=== PATIENT | female | born 1970 | race Caucasian/White ===

== ENCOUNTER 2020-06-24 12:24 | Outpatient (REF) | payer BC, SELFPAY ==
--- NOTE | ~2020-06-24 | MM_ITS ---
EXAMINATION: MM DIAGNOSTIC DIGITAL BREAST TOMOSYNTHESIS, BILATERAL US DIAGNOSTIC ULTRASOUND BREAST, BILATERAL CLINICAL INFORMATION: Fullness outer left breast noted by patient. Prior history fibrocystic changes. Also palpable area at clinical exam 7:00 right breast. Due for yearly. The lifetime risk of breast cancer based on the Tyrer-Cuzick Model is 10%. COMPARISON: Mammography: 01/15/2020, 12/21/2018, 01/04/2018, diagnostic left breast ultrasound 06/27/2019, bilateral diagnostic breast ultrasound 12/21/2018. TECHNIQUE: Digital breast tomosynthesis is performed in both the craniocaudal and mediolateral oblique views along with computer-aided detection (CAD). Synthesized 2D images are generated from the tomosynthesis. Ultrasound left breast is targeted to the lower outer quadrant and right breast targeted to the lower outer quadrant. Grayscale imaging and color Doppler are performed without and with harmonics. Patient is able to point to the areas of concern at time of imaging. FINDINGS: The breasts are extremely dense, which lowers the sensitivity of mammography (ACR BI-RADS breast composition Category d). There is oval smooth nodule mid outer left breast slightly increased in size since prior study 01/15/2020. Cyst noted in this area on prior imaging. The remainder of the bilateral breasts show no interval mass or architectural abnormality or developing density. There are no the axilla and skin contours are unremarkable. Abnormal calcifications. Ultrasound left breast demonstrates simple cyst 4:00 position 5 cm from nipple corresponding to the area of palpable concern and mammographic finding. This measures 1.4 x 0.7 cm. Prior measurement 1.0 x 0.5 cm. There is no solid mass or architectural abnormality. Ultrasound right breast demonstrates 2 small cysts lower outer quadrant 8:00 position 9:00 position approximately 7 cm from nipple, the larger measuring only 1.1 x 0.4 cm and the smaller 0.6 x 0.3 cm. There is no solid mass or architectural abnormality. Results are discussed with the patient at time of visit. MM/MM tomosynthesis diagnostic BI IMPRESSION: 1. No mammographic evidence of malignancy. 2. Small bilateral simple cysts corresponding to areas of recent palpable concern. ASSESSMENT: BI-RADS 2: Benign RECOMMENDATION: Routine annual mammography screening. This patient's information was entered into a reminder system with a target due date for their next mammogram.
== END 2020-06-24 12:25 | disposition home or self-care (01) ==
LOC: HO.MAMMO 12:24
PROVIDERS: Visit Provider Internal Medicine
DX: N63.13 Unspecified lump in the right breast, lower outer quadrant (principal); N63.23 Unspecified lump in the left breast, lower outer quadrant
CPT/HCPCS: 76642; 77062; 77066

== ENCOUNTER 2021-01-29 09:56 | Outpatient (REF) | payer BC, SELFPAY ==
--- NOTE | ~2021-01-29 | MM_ITS ---
EXAMINATION: MM SCREENING DIGITAL BREAST TOMOSYNTHESIS, BILATERAL CLINICAL INFORMATION: Screening. Asymptomatic. The lifetime risk of breast cancer based on the Tyrer-Cuzick Model is 16%. COMPARISON: Mammography: 06/24/2020, 01/15/2020, 12/21/2018, 04/05/2018; bilateral targeted ultrasound 06/24/2020. TECHNIQUE: Digital breast tomosynthesis is performed in both the craniocaudal and mediolateral oblique views along with computer-aided detection (CAD). Synthesized 2D images are generated from the tomosynthesis. FINDINGS: The breasts are extremely dense, which lowers the sensitivity of mammography (ACR BI-RADS breast composition Category d). There are no significant masses, abnormal calcifications, or other abnormalities. Parenchymal pattern is similar to prior studies. No developing density. Skin contours are smooth. MM/MM tomosynthesis screening BI IMPRESSION: No mammographic evidence of malignancy. ASSESSMENT: BI-RADS 1: Negative RECOMMENDATION: Routine annual mammography screening. This patient's information was entered into a reminder system with a target due date for their next mammogram.
== END 2021-01-29 09:57 | disposition home or self-care (01) ==
LOC: HO.MAMMO 09:56
PROVIDERS: Visit Provider Internal Medicine
DX: Z12.31 Encounter for screening mammogram for malignant neoplasm of breast (principal)
CPT/HCPCS: 77063; 77067

== ENCOUNTER 2022-02-03 09:54 | Outpatient (REF) | payer BC, SELFPAY ==
--- NOTE | ~2022-02-03 | MM_ITS ---
EXAMINATION: MM SCREENING DIGITAL BREAST TOMOSYNTHESIS, BILATERAL CLINICAL INFORMATION: Screening. Asymptomatic. The lifetime risk of breast cancer based on the Tyrer-Cuzick Model is 16%. COMPARISON: Mammography: 01/29/2021, 06/24/2020, 01/15/2020, 12/21/2018; bilateral breast ultrasound 06/24/2020. TECHNIQUE: Digital breast tomosynthesis is performed in both the craniocaudal and mediolateral oblique views along with computer-aided detection (CAD). Synthesized 2D images are generated from the tomosynthesis. FINDINGS: The breasts are extremely dense, which lowers the sensitivity of mammography (ACR BI-RADS breast composition Category d). There are no significant masses, abnormal calcifications, or other abnormalities. There is smooth oval asymmetry central outer left breast1.4 cm corresponding to a simple cyst on ultrasound. No architectural abnormality. The axilla and skin contours are unremarkable. MM/MM tomosynthesis screening BI IMPRESSION: No mammographic evidence of malignancy. ASSESSMENT: BI-RADS 2: Benign RECOMMENDATION: Routine annual mammography screening. This patient's information was entered into a reminder system with a target due date for their next mammogram.
== END 2022-02-03 09:55 | disposition home or self-care (01) ==
LOC: HO.MAMMO 09:54
PROVIDERS: PCP Nurse Practitioner Family; Visit Provider Internal Medicine
DX: Z12.31 Encounter for screening mammogram for malignant neoplasm of breast (principal)
CPT/HCPCS: 77063; 77067

== ENCOUNTER 2023-02-10 07:17 | Outpatient (REF) | payer BC, SELFPAY ==
--- NOTE | ~2023-02-10 | MM_ITS ---
EXAMINATION: MM SCREENING DIGITAL BREAST TOMOSYNTHESIS, BILATERAL CLINICAL INFORMATION: Screening. Asymptomatic. COMPARISON: Mammography: This study is compared with prior exams dating back to 2019. TECHNIQUE: Digital breast tomosynthesis is performed in both the craniocaudal and mediolateral oblique views along with computer-aided detection (CAD). Synthesized 2D images are generated from the tomosynthesis. FINDINGS: The breasts are heterogeneously dense, which may obscure small masses (ACR BI-RADS breast composition Category c). There are grouped calcifications in the upper outer quadrant of the left breast. Additional mammographic imaging with magnification is advised. There are no other significant findings in this breast. In the right breast, there are no significant masses, abnormal calcifications, or other abnormalities. MM/MM tomosynthesis screening BI IMPRESSION: Calcifications in the upper outer quadrant of the left breast warrant additional mammographic imaging with magnification. No mammographic signs of malignancy right breast. ASSESSMENT: BI-RADS BI-RADS 0 - Incomplete: Needs additional Imaging. RECOMMENDATION: Additional views of the left breast. Radiology department staff will contact the patient for additional imaging. 1 year F/U This examination should not preclude the clinical evaluation of a suspicious palpable abnormality. This patient's information was entered into a reminder system with a target due date for their next mammogram.
== END 2023-02-10 07:18 | disposition home or self-care (01) ==
LOC: HO.MAMMO 07:17
PROVIDERS: PCP Nurse Practitioner Family; Visit Provider Nurse Practitioner Family
DX: Z12.31 Encounter for screening mammogram for malignant neoplasm of breast (principal)
CPT/HCPCS: 77063; 77067

== ENCOUNTER → 2023-02-10 07:30 | Outpatient (BNV) | payer BC, SELFPAY | PROVIDERS: PCP Nurse Practitioner Family; Visit Provider Radiology Diagnostic Radiology | DX: Z12.31 Encounter for screening mammogram for malignant neoplasm of breast (principal) | CPT/HCPCS: 77063; 77067 ==

== ENCOUNTER 2023-03-04 07:57 | Outpatient (REF) | payer BC, SELFPAY ==
--- NOTE | ~2023-03-04 | MM_ITS ---
EXAMINATION: MM DIAGNOSTIC DIGITAL MAMMOGRAPHY, LEFT CLINICAL INFORMATION: Evaluate calcifications seen on screening exam COMPARISON: Mammography: 02/10/2023, 02/03/2022, 01/29/2021, 06/24/2020, 01/15/2020, 1020. Dating back to 2013. TECHNIQUE: Digital mammography is performed in the following views: 2-D spot magnification views left breast in the CC projection x2, and ML projection x2. FINDINGS: The breasts are extremely dense, which lowers the sensitivity of mammography (ACR BI-RADS breast composition Category d). There are 2 groups of calcifications identified in the left breast, tightly grouped in the middle one third of the left breast, just lateral to the nipple line, and the second in the posterior one third, much less tightly grouped, just medial to the nipple line. The anterior group of calcifications is tightly grouped, roundish in nature, and moderately pleomorphic with linear punctate forms, oval amorphous forms, a few linear forms, but no branching forms or suspicious distribution. The more posterior group has similar morphology, but is much looser in grouping, with less pleomorphism. Nevertheless, they are indeterminant in the patient prefers both sites be biopsied. Results were discussed with the patient directly by myself, and all questions were answered at the time. The patient would prefer both sites biopsied during the same procedure, a reasonable request which will be honored. MM/MM added views LT IMPRESSION: 2 sites of indeterminate grouped calcifications, which cannot definitively be classified as benign. Stereotactic biopsy recommended for both sites. ASSESSMENT: BI-RADS BI-RADS 4 - Suspicious finding RECOMMENDATION: Biopsy recommended This patient's information was entered into a reminder system with a target due date for their next mammogram.
== END 2023-03-04 07:58 | disposition home or self-care (01) ==
LOC: HO.MAMMO 07:57
PROVIDERS: PCP Nurse Practitioner Family; Visit Provider Nurse Practitioner Family
DX: R92.1 Mammographic calcification found on diagnostic imaging of breast (principal)
CPT/HCPCS: 77065

== ENCOUNTER → 2023-03-04 08:00 | Outpatient (BNV) | payer BC, SELFPAY | PROVIDERS: PCP Nurse Practitioner Family; Visit Provider Radiology Diagnostic Radiology | DX: R92.1 Mammographic calcification found on diagnostic imaging of breast (principal) | CPT/HCPCS: 77065 ==

== ENCOUNTER 2023-03-08 13:21 | Outpatient (REF) | payer BC, SELFPAY ==
--- NOTE | ~2023-03-08 | MM_ITS ---
EXAMINATION: STEREOTACTIC TOMOSYNTHESIS-GUIDED VACUUM-ASSISTED BREAST BIOPSY, LEFT, 2 SITES SPECIMEN RADIOGRAPH, LEFT, 2 SITES POST PROCEDURE DIGITAL MAMMOGRAM, LEFT CLINICAL INFORMATION: 2 sites of suspicious calcifications in the left breast, the more anterior (SITE A) is more tightly grouped and located far medial and superior within the mid one third of the left breast. This second site is more loosely clustered and less suspicious (SITE B) and is located upper outer left breast, posterior one third. COMPARISON: 03/04/2023, 02/10/2023, 02/03/2022, 01/29/2021. TECHNIQUE/PROCEDURE: Informed consent was obtained from the patient after discussion of the benefits, risks, and alternatives to biopsy today. Patient appeared to understand. Gave opportunity for questions. Patient signed consent form. BIOPSY TABLE: [employer] Prone Biopsy System. LESION: 2 sites of calcifications upper outer breast as detailed. (SITE A, marked by top hat clip, and SITE B, marked by a buckle clip). LOCAL ANESTHESIA: 5 mL 1% lidocaine; 9 mL 1% lidocaine with epinephrine for SITE A. 5 mL 1% lidocaine; 7 mL 1% lidocaine with epinephrine for SITE B. DERMATOTOMY: Single skin sarah dermatotomy performed at each site. NEEDLE: X-1 Eviva 9-gauge vacuum assisted core biopsy device. APPROACH: Both sites craniocaudal. TARGETING: Combination of digital breast tomosynthesis and stereotactic digital mammography used for targeting. CORES: 7 core biopsies obtained from each site. CLIP: Top hat-shaped clip site A. Buckle clip site B. SPECIMEN RADIOGRAPH: Specimen radiograph is taken in separate room using digital mammography. SITE A: at least one and more likely 2 index calcifications are in the excised cores. SITE B: No definitive calcifications obtained (biopsy site was slightly too far superior due to technical inability to accurately visualize SITE B calcifications) POST PROCEDURE UNILATERAL DIGITAL MAMMOGRAM: The post biopsy mammogram is performed in separate room using separate digital mammography equipment from the biopsy procedure. CC and 90 degree mediolateral views are obtained. The breasts are heterogeneously dense, which may obscure small masses (breast composition category: c). SITE A: Clip appears in accurate and expected location. SITE B: Clip appears higher than expected for second group of calcifications, likely indicating biopsy site was too far posterolateral. The patient tolerated the procedure well. No immediate complications. Home instructions reviewed with the patient. Final pathology results are pending. MM/MM stereotactic biopsy ea add IMPRESSION: 1. Digital tomosynthesis-guided 2 site core biopsy left breast with dual clip placement as detailed. 2. Specimen radiograph taken and post procedure mammogram. There is satisfactory positioning of the both biopsy clips. The second clip appears to far posterior lateral, likely indicating the biopsy site was too far posterior lateral to the index calcifications of SITE B. 3. Final pathology results pending. An addendum report will be issued.
--- NOTE | ~2023-03-08 | MM_ITS ---
EXAMINATION: STEREOTACTIC TOMOSYNTHESIS-GUIDED VACUUM-ASSISTED BREAST BIOPSY, LEFT, 2 SITES SPECIMEN RADIOGRAPH, LEFT, 2 SITES POST PROCEDURE DIGITAL MAMMOGRAM, LEFT CLINICAL INFORMATION: 2 sites of suspicious calcifications in the left breast, the more anterior (SITE A) is more tightly grouped and located far medial and superior within the mid one third of the left breast. This second site is more loosely clustered and less suspicious (SITE B) and is located upper outer left breast, posterior one third. COMPARISON: 03/04/2023, 02/10/2023, 02/03/2022, 01/29/2021. TECHNIQUE/PROCEDURE: Informed consent was obtained from the patient after discussion of the benefits, risks, and alternatives to biopsy today. Patient appeared to understand. Gave opportunity for questions. Patient signed consent form. BIOPSY TABLE: [employer] Prone Biopsy System. LESION: 2 sites of calcifications upper outer breast as detailed. (SITE A, marked by top hat clip, and SITE B, marked by a buckle clip). LOCAL ANESTHESIA: 5 mL 1% lidocaine; 9 mL 1% lidocaine with epinephrine for SITE A. 5 mL 1% lidocaine; 7 mL 1% lidocaine with epinephrine for SITE B. DERMATOTOMY: Single skin sarah dermatotomy performed at each site. NEEDLE: [employer] Eviva 9-gauge vacuum assisted core biopsy device. APPROACH: Both sites craniocaudal. TARGETING: Combination of digital breast tomosynthesis and stereotactic digital mammography used for targeting. CORES: 7 core biopsies obtained from each site. CLIP: Top hat-shaped clip site A. Buckle clip site B. SPECIMEN RADIOGRAPH: Specimen radiograph is taken in separate room using digital mammography. SITE A: at least one and more likely 2 index calcifications are in the excised cores. SITE B: No definitive calcifications obtained (biopsy site was slightly too far superior due to technical inability to accurately visualize SITE B calcifications) POST PROCEDURE UNILATERAL DIGITAL MAMMOGRAM: The post biopsy mammogram is performed in separate room using separate digital mammography equipment from the biopsy procedure. CC and 90 degree mediolateral views are obtained. The breasts are heterogeneously dense, which may obscure small masses (breast composition category: c). SITE A: Clip appears in accurate and expected location. SITE B: Clip appears higher than expected for second group of calcifications, likely indicating biopsy site was too far posterolateral. The patient tolerated the procedure well. No immediate complications. Home instructions reviewed with the patient. Final pathology results are pending. MM/MM stereotactic biopsy LT IMPRESSION: 1. Digital tomosynthesis-guided 2 site core biopsy left breast with dual clip placement as detailed. 2. Specimen radiograph taken and post procedure mammogram. There is satisfactory positioning of the both biopsy clips. The second clip appears to far posterior lateral, likely indicating the biopsy site was too far posterior lateral to the index calcifications of SITE B. 3. Final pathology results pending. An addendum report will be issued.
[2023-03-08] MEDS: Sodium Bicarbonate 8.4% 50 MEQ/50 ML VIAL SUBCUT (16:42)
[2023-03-08] MEDS: Lidocaine HCl 1 % 20 ML VIAL 8 ML SUBCUT (16:43)
[2023-03-08] MEDS: Lidocaine HCl 1%/Epi 1:100,000 10 ML VIAL 18 ML SUBCUT (16:45)
== END 2023-03-08 13:22 | disposition home or self-care (01) ==
LOC: HO.MAMMO 13:21
PROVIDERS: PCP Nurse Practitioner Family; Visit Provider Nurse Practitioner Family
DX: R92.0 Mammographic microcalcification found on diagnostic imaging of breast (principal)
CPT/HCPCS: 19081; 19082; 88305; A4648

== ENCOUNTER → 2023-03-08 13:30 | Outpatient (BNV) | payer BC, SELFPAY | PROVIDERS: PCP Nurse Practitioner Family; Visit Provider Radiology Diagnostic Radiology | DX: R92.0 Mammographic microcalcification found on diagnostic imaging of breast (principal) | CPT/HCPCS: 19081; 19082 ==

== ENCOUNTER 2023-04-02 10:26 | Outpatient (AMB) | payer BC, SELFPAY ==
--- NOTE | 2023-04-02 10:38 | MHC.OFFVIS ---
Intake Vital Signs 04/02/23 10:40 Weight 168 lb 13.985 oz BP 128/84 Blood Pressure Location Rt brachial Position Sitting Pulse 80 Intake Visit Reasons: Left breast stereo biopsy, bx date 03/08/23 Intake Note: Patient here to discuss Lt breast stereo bx on 03-08-23. Patient c/o: Irritation at bx site. Band Attacher Required: No Accompanied by: Rejean Allergies No Known Allergies [No Known Allergies*] Allergy (Verified 04/02/23 10:42) Medication List - Last Reconciled 04/02/23 by Quinn Chauhan MD ascorbate calcium (vitamin C) 500 mg PO DAILY calcium carbonate (Calcium) 600 mg PO DAILY cholecalciferol (vitamin D3) 50 mcg PO DAILY vitamin B complex 1 tab PO DAILY HPI HPI Comments History of Present Illness Details Patient presents with her . She is status post stereotactic biopsy x2 of left breast. Specimen a demonstrated lobular hyperplasia with atypia. Specimen B was benign. Patient had no prior breast issues or complaints. She did occasional self-breast exams. This was picked up on surveillance screening. Family history negative breast cancer. Chart was reviewed patient evaluated [facility] Medical History Leukopenia Mitral valve prolapse Right sided sciatica Degenerative disc disease, lumbar Cyst of left breast Masses of both breasts Surgical History [place] teeth extracted History of tonsillectomy Family History Father Diabetes mellitus HTN (hypertension) Mother Diabetes mellitus HTN (hypertension) Kidney failure Brother Diabetes mellitus HTN (hypertension) Son No problems noted. Maternal Grandmother Colon cancer Social History (Updated 04/02/23 @ 10:44 by NAVEED Patel) Alcohol intake: current Patient Tobacco Use Status: Never used Tobacco Physical Exam Vital Signs: Last Vital Signs Pulse 80 04/02/23 10:40 BP 128/84 04/02/23 10:40 Chest Other: Chest breath sounds bilaterally, HS 1 and 2. Bilateral breast exam demonstrates no obvious mass, discharge, skin changes , or periclavicular axillary or cervical adenopathy bilaterally. Biopsy sites clean dry and intact.. GI Other: Abdomen soft, moderately corpulent, benign Assessment & Plan Assessment & Plan (1) Breast calcification, left: Code(s): R92.1 - Mammographic calcification found on diagnostic imaging of breast Plan: Lengthy discussion was had with patient regarding biopsy results. Regarding the 8 atypical lobular hyperplasia, options include very close surveillance or lumpectomy of the area. Risks, benefits, alternatives of each reviewed the patient. Patient wishes to proceed with the lumpectomy. Specific risks, benefits, alternatives of procedure reviewed the patient included but not limited to bleeding, infection, numbness, pain, scarring, re-excision requirement and the patient wished to proceed. All questions were answered. Arrangements will be made for this. Localizer for biopsy site A order has been placed. Orders: Orders MM needle loc LT Today R92.1 - Mammographic calcification found on diagnostic imaging of breast Coding Level of Care Code New Pt Level 5 (84475) Diagnoses Breast calcification, left R92.1
[2023-04-02 10:40] VITALS: BP 128/84; PULSE 80
== END 2023-04-02 11:06 | disposition home or self-care (01) ==
PROVIDERS: PCP Nurse Practitioner Family; Visit Provider Surgery
DX: R92.1 Mammographic calcification found on diagnostic imaging of breast (principal)
CPT/HCPCS: 99204

== ENCOUNTER → 2023-04-02 10:26 | Outpatient (BNVA) | payer BC, SELFPAY | PROVIDERS: PCP Nurse Practitioner Family; Visit Provider Surgery ==

== ENCOUNTER 2023-04-08 07:47 | Outpatient (REF) | payer BC, SELFPAY ==
--- NOTE | ~2023-04-08 | MM_ITS ---
EXAMINATION: MM MAMMOGRAM GUIDED RFID LOCALIZATION BREAST, LEFT CLINICAL INFORMATION: Atypical lobular hyperplasia left breast. COMPARISON: 02/10/2023, 03/04/2023, 02/05/2023 stereotactic biopsy. TECHNIQUE NEEDLE LOC: Proper informed consent is obtained from the patient after discussion of the procedure, potential risks and complications, and alternatives including declining the procedure today. Patient was given an opportunity for questions. The patient appeared to understand. The patient consented to the procedure and signed the consent form. GUIDANCE: Digital mammography. APPROACH: Craniocaudal TARGET: Top hat-shaped clip with surrounding calcifications. ANESTHESIA: carbonated lidocaine 1%: 3 mL. LOCALIZATION SYSTEM: -[employer] LOCallizer Wire-Free Guidance System with 12g needle applicator. -Length: 7 cm. -RADIOFREQUENCY TAG: ID # [id number] DERMATOTOMY: Tiny skin-sarah dermatotomy performed. RF Tag ID confirmed with LOCalizer Guidance System prior to placement. The skin is prepped and local anesthesia administered. The needle is positioned and RFID tag deployed. Final images demonstrate the LOCalizer RF tag to reside touching the top hat-shaped biopsy clip. This is well-positioned. There are a few surrounding remaining calcifications. The patient tolerated the procedure well and had no immediate complications. Dressing placed and home instructions reviewed. MM/MM needle loc LT IMPRESSION: -Status post left breast RFID localization for ALH. -Final 2 images marked and labeled for reference in the OR.
[2023-04-08] MEDS: Sodium Bicarbonate 8.4% 50 MEQ/50 ML VIAL SUBCUT (09:40)
== END 2023-04-08 07:48 | disposition home or self-care (01) ==
LOC: HO.MAMMO 07:47
PROVIDERS: PCP Nurse Practitioner Family; Visit Provider Surgery
DX: R92.1 Mammographic calcification found on diagnostic imaging of breast (principal)
CPT/HCPCS: 19281; C1819

== ENCOUNTER 2023-04-16 12:54 | Outpatient (AMB) | payer BC, SELFPAY ==
[2023-04-16 12:58] VITALS: BP 120/72; PULSE 75; BMI 31.2
--- NOTE | 2023-04-16 12:58 | MHC.OFFVIS ---
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 She was apparently told to have mitral valve prolapse decades ago. However, no other cardiac issues like coronary disease, myocardial infarction or cardiomyopathy. She is fairly active with no limitations. No symptoms like angina or shortness of breath or palpitations or tiredness or in fact anything concern. She needs to go for breast surgery but because of the mitral valve prolapse history she has been referred to us for evaluation. [facility] Medical History Leukopenia Mitral valve prolapse Right sided sciatica Degenerative disc disease, lumbar Cyst of left breast Masses of both breasts Surgical History [place] teeth extracted History of tonsillectomy Family History Father Diabetes mellitus HTN (hypertension) Mother Diabetes mellitus HTN (hypertension) Kidney failure Brother Diabetes mellitus HTN (hypertension) Son No problems noted. Maternal Grandmother Colon cancer Social History Alcohol intake: current Patient Tobacco Use Status: Never used Tobacco Review of Systems Const Denies chills, Denies daytime sleepiness, Denies fatigue, Denies fever(s), Denies frequent falls, Denies night sweats, Denies snoring, Denies weakness, Denies weight gain and Denies weight loss Eyes Denies loss of vision ENT Denies dizziness and Denies hearing loss Card Denies chest pain, Denies chest pain with activity, Denies syncope, Denies rapid heart rate, Denies edema, Denies claudication, Denies leg edema, Denies lightheadedness, Denies palpitations, Denies dyspnea, Denies dyspnea on exertion and Denies orthopnea Resp Denies cough, Denies excessive phlegm production, Denies dyspnea, Denies dyspnea on exertion, Denies snoring and Denies wheezing GI Denies abdominal pain, Denies hematochezia, Denies change in bowel habits, Denies change in stool character, Denies heartburn, Denies nausea and Denies vomiting Denies hematuria, Denies urinary frequency and Denies dysuria Musc Denies arthralgias, Denies muscle weakness, Denies numbness and Denies tingling Skin/Breast Denies nail changes and Denies rash Neuro Denies Abnormal speech present, Denies dizziness, Denies syncope, Denies frequent falls, Denies loss of vision, Denies memory loss, Denies numbness, Denies tingling and Denies weakness Psych Denies depression and Denies memory loss Endo Denies fatigue and Denies palpitations Aller/Immun Denies wheezing Physical Exam Vital Signs: Last Vital Signs Pulse 75 04/16/23 12:58 BP 120/72 04/16/23 12:58 BMI result Body Mass Index 31.2 Const General: comfortable and no acute distress Orientation/consciousness: patient oriented x3 HEENT Other: Unremarkable Head: Yes normal to inspection Neck Neck: Yes normal visual inspection Chest Chest palpation & inspection: normal inspection of the chest Resp Auscultation: clear to auscultation bilaterally Cardio Palpation: normal PMI Heart sounds: S1 normal heart sound present, S2 normal heart sound present, no gallops, no murmurs and no rubs GI Palpation (GI): Soft to palpation Back/Spine/Pelvis Other: unremarkable Skin General skin exam: no rashes or lesions noted Neuro General: patient oriented x3 Speech: No Abnormal speech present Extrem General: Yes normal to inspection Psych Mental Status: mental status grossly normal Office Procedures EKG Details: EKG with sinus rhythm at 75/Min; no significant ST-T changes and otherwise [place]remark[place] [id number], Complete Assessment & Plan Assessment & Plan (1) Pre-operative cardiovascular examination: Code(s): Z01.810 - Encounter for preprocedural cardiovascular examination (2) Mitral valve prolapse: Code(s): I34.1 - Nonrheumatic mitral (valve) prolapse (3) Nonrheumatic mitral valve regurgitation: Code(s): I34.0 - Nonrheumatic mitral (valve) insufficiency Plan Recent echocardiogram report reviewed. Mitral valve described myxomatous. Moderate prolapse of both leaflets but only mild mitral regurgitation. LVEF is preserved at 55-60% and no wall motion abnormalities and normal diastolic function. Discussed with patient and significant other regarding mitral valve prolapse/mitral regurgitation in great detail. Also showed picture illustrations. They understand. At this time, there is only mild regurgitation. We can follow up with another echocardiogram in 3-5 years. Patient advised to call around that time. Otherwise, if any symptoms like shortness of breath or anything else of concern, also advised to contact us. With regard to breast surgery, may proceed. Low cardiac risk. Total time spent including review of outside records, counseling, documentation, coordination of care-44 minutes. Coding Level of Care Code New Pt Level 4 (95633) Diagnoses Pre-operative cardiovascular examination Z01.810 Mitral valve prolapse I34.1 Nonrheumatic mitral valve regurgitation I34.0 CPT Codes EKG - CPT: 76532-[id number], Complete ([id number])
== END 2023-04-16 13:25 | disposition home or self-care (01) ==
PROVIDERS: PCP Nurse Practitioner Family; Visit Provider Internal Medicine
DX: Z01.810 Encounter for preprocedural cardiovascular examination (principal); I34.1 Nonrheumatic mitral (valve) prolapse; I34.0 Nonrheumatic mitral (valve) insufficiency
CPT/HCPCS: 93010; 99204

== ENCOUNTER → 2023-04-16 12:54 | Outpatient (BNVA) | payer BC, SELFPAY | PROVIDERS: PCP Nurse Practitioner Family; Visit Provider Internal Medicine | DX: Z01.810 Encounter for preprocedural cardiovascular examination (principal); I34.1 Nonrheumatic mitral (valve) prolapse; I34.0 Nonrheumatic mitral (valve) insufficiency | CPT/HCPCS: 93005 ==

== ENCOUNTER 2023-05-07 07:31 | Day surgery (SDC) | payer BC, SELFPAY ==
--- NOTE | 2023-05-06 12:58 | MHC.SHP ---
Pre-Procedural Eval Section A Date of Service: 05/06/23 The patient is an INPATIENT: No Changes since office visit: No Cold of Flu in the past 2 weeks, No New Medical Problems, No Changes in Medication and No Patient answered all questions The History & Physical has been completed within 30 days and I have reviewed it.: Yes Section B Chief Complaint: Mammographic calcification found on diagnostic malou Allergies: Allergies Allergy/AdvReac Type Severity Reaction Status Date / Time No Known Allergies Allergy Verified 04/16/23 13:01 [No Known Allergies*] Plan I have reviewed the history and physical and performed a pertinent physical examination on my patient. No changes have occurred unless specified. Time Spent With Patient Time: Total time managing care of this patient today ____ minutes.
--- NOTE | ~2023-05-07 | MM_ITS ---
EXAMINATION: NEEDLE LOCALIZATION SPECIMEN FROM THE LEFT BREAST CLINICAL INFORMATION: Atypical lobular hyperplasia left breast. COMPARISON: Stereotactic biopsy left breast 03/08/2023, left breast RFID localization 04/08/2023. TECHNIQUE: Solitary view of the specimen was obtained. FINDINGS: Radiograph demonstrates the presence of the top hat biopsy clip, RF ID chip, and extremely subtle residual grouped calcifications within the paramidline region of the specimen. Margins appear clear. MM/MM surgical specimen IMPRESSION: Satisfactory excision of the targeted lesion. These findings were communicated to the Dr. Chauhan in the OR at the time of specimen radiography. ADDENDUM: Pathology demonstrates left breast lumpectomy: -Lobular carcinoma in situ. -Atypical ductal hyperplasia, focal. -Pseudoangiomatous stromal hyperplasia. -Microcalcifications associated with nontypical and atypical epithelium. -Biopsy site changes. RECOMMENDATIONS: Standard postoperative/post lumpectomy mammography.
[2023-05-07 07:56] VITALS: BMI 31.0
[2023-05-07 08:22] VITALS: BP 134/73; PULSE 76; RESP 16; TEMP 36.6; O2SAT 97
[2023-05-07] MEDS: Lactated Ringers 1,000 ML 100 ML IVCONT (08:27)
--- NOTE | 2023-05-07 08:35 | P.CONAN_ITS ---
Documented by User: Wilma Guajardo NP 05/05/23 12:25 HPI - Anesthesia Eval Consult details Narrative: 52yo F for Left Breast Lumpectomy w/LOCalizer, Left [place] Node Biopsy Cardiac cleared PMFSH Active Problems Active Problems: All Active Problems (Updated 04/16/23 @ 13:36 by Ayad Nick MD) Nonrheumatic mitral valve regurgitation (Acute) Pre-operative cardiovascular examination (Acute) Breast calcification, left (Acute) Mitral valve prolapse (Acute) Right sided sciatica (Acute) Degenerative disc disease, lumbar (Acute) Masses of both breasts (Acute) Past Medical History Medical History Leukopenia Mitral valve prolapse Right sided sciatica Degenerative disc disease, lumbar Cyst of left breast Masses of both breasts Family History Family History Father Diabetes mellitus HTN (hypertension) Mother Diabetes mellitus HTN (hypertension) Kidney failure Brother Diabetes mellitus HTN (hypertension) Son No problems noted. Maternal Grandmother Colon cancer Surgical History Surgical History [place] teeth extracted History of tonsillectomy Social History Social History Alcohol intake: current Alcohol intake frequency: holidays/special occasions only Patient Tobacco Use Status: Never used Tobacco Use of substances other than those prescribed or required for medical reasons: No Are you DNR?: No Advance Directives: No Advance Directives Information Provided: Yes Meds Allergies Allergy/AdvReac Type Severity Reaction Status Date / Time No Known Allergies Allergy Verified 05/07/23 08:05 [No Known Allergies*] Home Medications Medication Instructions Recorded Confirmed Last Taken Type cholecalciferol (vitamin D3) 50 50 mcg PO DAILY 06/18/20 05/07/23 05/06/23 History mcg (2,000 unit) capsule vitamin B complex 1 tab PO DAILY 06/18/20 05/07/23 05/06/23 History calcium carbonate 600 mg calcium 600 mg PO DAILY 04/02/23 05/07/23 05/06/23 History (1,500 mg) tablet (Calcium) Exam Narrative Narrative: EKG 03/2023 sinus rhythm at 75/Min; no significant ST-T changes and otherwise unremarkable. Normal PA and corrected QT. Per cardiac clearance note: Recent echocardiogram report reviewed. Mitral valve described myxomatous. Moderate prolapse of both leaflets but only mild mitral regurgitation. LVEF is preserved at 55-60% and no wall motion abnormalities and normal diastolic function. Assessment and Plan Assessment Anesthesia Assessment: Chart Reviewed Documented by User: Edilia Mcdaniels DO 05/07/23 08:44 PMFSH Past Medical History Medical History Leukopenia Mitral valve prolapse Right sided sciatica Degenerative disc disease, lumbar Cyst of left breast Masses of both breasts Family History Family History Father Diabetes mellitus HTN (hypertension) Mother Diabetes mellitus HTN (hypertension) Kidney failure Brother Diabetes mellitus HTN (hypertension) Son No problems noted. Maternal Grandmother Colon cancer Family history of problems with anesthesia: No Surgical History Surgical History [place] teeth extracted History of tonsillectomy History of Problems with Anesthesia: No Social History Social History Alcohol intake: current Alcohol intake frequency: holidays/special occasions only Patient Tobacco Use Status: Never used Tobacco Use of substances other than those prescribed or required for medical reasons: No Are you DNR?: No Advance Directives: No Advance Directives Information Provided: Yes Meds Allergies Allergy/AdvReac Type Severity Reaction Status Date / Time No Known Allergies Allergy Verified 05/07/23 08:05 [No Known Allergies*] Home Medications Medication Instructions Recorded Confirmed Last Taken Type cholecalciferol (vitamin D3) 50 50 mcg PO DAILY 06/18/20 05/07/23 05/06/23 History mcg (2,000 unit) capsule vitamin B complex 1 tab PO DAILY 06/18/20 05/07/23 05/06/23 History calcium carbonate 600 mg calcium 600 mg PO DAILY 04/02/23 05/07/23 05/06/23 History (1,500 mg) tablet (Calcium) Exam Exam Date and Time: May 07, 2023 0835 Height,Weight and Vital Signs: Height 5 ft 2 in Weight 76.884 kg Vital Signs Temperature 97.8 F 05/07/23 08:22 Pulse Rate 76 05/07/23 08:22 Respiratory Rate 16 05/07/23 08:22 Blood Pressure 134/73 05/07/23 08:22 Pulse Oximetry 97 05/07/23 08:22 Oxygen Delivery Method Room Air 05/07/23 08:22 Temperature 97.8 F 05/07/23 08:22 Pulse Rate 76 05/07/23 08:22 Respiratory Rate 16 05/07/23 08:22 Blood Pressure 134/73 05/07/23 08:22 Pulse Oximetry 97 05/07/23 08:22 Oxygen Delivery Method Room Air 05/07/23 08:22 Airway Mallampati Class: I TM Dist: <=3cm Neck ROM: Full Loose/Missing/Broken Teeth: No Heart: S1S2 Lungs: CTAB Assessment and Plan Assessment Anesthesia Assessment: Anesthesia Plan Discussed and Chart Reviewed Final Anesthetic Review Family History of Problems with Anesthesia: No History of Problems with Anesthesia: No NPO: Yes ASA Class: II Final Preanesthetic Review: No Changes in Pt Med Stat, Meds/Allgs Chart Reviewed, Consent Obtained/Reviewed and Anes Risks/Benef Reviewed Patient Risk: Low Procedure Risk: Low Anesthetic Plan Anesthetic Plan: GA (vs MAC - will discuss with surgeon. Patient was amenable to either plan.) and Agree w/ Assess. and Plan Disposition: Standard PACU
[2023-05-07 10:22] VITALS: BP 104/50; PULSE 80; RESP 16; TEMP 36.6; O2SAT 98
--- NOTE | 2023-05-07 10:23 | P.OP_ITS ---
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 Localizer was actually visuali zed. See circumferentially 3 cm dissection was accomplished using Bovie and specimen sent to pathology after confirmation in intraop mammogram device. The wound Was irrigated, secured hemostasis, and closed using interrupted inverted dermal 3-0 Vicryl sutures followed by Steri-Strips and sterile dressings. Sponge, needle, instrument counts were reported correct. Patient tolerated the procedure well and emerged anesthesia in stable condition. EBL minimal
[2023-05-07 10:38] VITALS: BP 127/58; PULSE 62; RESP 17; TEMP 36.6; O2SAT 95
== END 2023-05-07 11:15 | disposition home or self-care (01) ==
PROVIDERS: PCP Nurse Practitioner Family; Visit Provider Surgery
PROC: (CPT 19301; principal; 2023-05-07 09:00)
DX: D05.02 Lobular carcinoma in situ of left breast (principal); D72.819 Decreased white blood cell count, unspecified; Z79.899 Other long term (current) drug therapy
CPT/HCPCS: 19301; 88307; J0690; J1885; J2250; J2704; J2795; J3010; Q9968

== ENCOUNTER → 2023-05-07 07:31 | Outpatient (BNV) | payer BC, SELFPAY | PROVIDERS: PCP Nurse Practitioner Family; Visit Provider Surgery | DX: D05.02 Lobular carcinoma in situ of left breast (principal) | CPT/HCPCS: 19301 ==

== ENCOUNTER 2023-05-17 10:00 | Outpatient (AMB) | payer BC, SELFPAY ==
--- NOTE | 2023-05-17 10:03 | MHC.OFFVIS ---
Intake Vital Signs 05/17/23 10:04 Weight 171 lb BP 147/67 H Blood Pressure Location Rt brachial Position Sitting Pulse 69 Intake Visit Reasons: S/P Lt lumpectomy Intake Note: Patient here s/p lt lumpectomy. Reports incisions healing well. Patient reports incisions healing well. Deies oozing, pain. 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 She has incisional discomfort which is improving. Otherwise no other issues or complaints. Pathology was reviewed. LCIS and atypical hyperplasia. [facility] Medical History Leukopenia Mitral valve prolapse Right sided sciatica Degenerative disc disease, lumbar Cyst of left breast Masses of both breasts Surgical History (Updated 05/17/23 @ 10:21 by Quinn Chauhan MD) History of lumpectomy of left breast (05/07/23) [place] teeth extracted History of tonsillectomy Family History Father Diabetes mellitus HTN (hypertension) Mother Diabetes mellitus HTN (hypertension) Kidney failure Brother Diabetes mellitus HTN (hypertension) Son No problems noted. Maternal Grandmother Colon cancer Social History Alcohol intake: current Alcohol intake frequency: holidays/special occasions only Comment: counts correct Patient Tobacco Use Status: Never used Tobacco Physical Exam Vital Signs: Last Vital Signs Pulse 69 05/17/23 10:04 BP 147/67 H 05/17/23 10:04 Chest Other: Wound clean dry and intact healing uneventfully Assessment & Plan Assessment & Plan (1) Lobular carcinoma in situ (LCIS) of left breast: Code(s): D05.02 - Lobular carcinoma in situ of left breast Plan: Patient is at high-risk for bilateral breast cancer. She will put in the high-risk follow-up surveillance system. In the meantime, she will have postprocedure mammogram in 4 months time. We will also have her undergo oncology consult for evaluation for chemoprevention. All questions answered .She will see me after the postprocedure mammogram in 4 months time or p.r.n.. Orders: Orders MM screening mammo BI 4 Months D05.02 - Lobular carcinoma in situ of left breast Coding Level of Care Code Global (85618) Diagnoses Lobular carcinoma in situ (LCIS) of left breast D05.02
[2023-05-17 10:04] VITALS: BP 147/67; PULSE 69
== END 2023-05-17 10:19 | disposition home or self-care (01) ==
PROVIDERS: PCP Nurse Practitioner Family; Visit Provider Surgery
DX: D05.02 Lobular carcinoma in situ of left breast (principal)
CPT/HCPCS: 99024

== ENCOUNTER → 2023-05-17 10:00 | Outpatient (BNVA) | payer BC, SELFPAY | PROVIDERS: PCP Nurse Practitioner Family; Visit Provider Surgery ==

== ENCOUNTER → 2023-06-10 14:00 | Outpatient (BNV) | payer BC, SELFPAY | PROVIDERS: PCP Nurse Practitioner Family; Referring Provider Surgery; Visit Provider Internal Medicine Medical Oncology | DX: D05.02 Lobular carcinoma in situ of left breast (principal) | CPT/HCPCS: 99204; 99213 ==

== ENCOUNTER 2023-09-06 15:00 | Outpatient (REF) | payer BC, SELFPAY ==
--- NOTE | ~2023-09-06 | MM_ITS ---
EXAMINATION: MM DIAGNOSTIC DIGITAL BREAST TOMOSYNTHESIS, LEFT CLINICAL INFORMATION: LCIS left breast status post lumpectomy in April 2023. 5 month follow-up exam. COMPARISON: Mammography: 05/07/2023 surgical specimen, 04/08/2023 left sided needle localization, 03/08/2023 2 site stereotactic biopsy left breast, 02/10/2023, and dating back to 2019. TECHNIQUE: Digital left breast tomosynthesis is performed in both the craniocaudal and mediolateral oblique views along with computer-aided detection (CAD). Synthesized 2D images are generated from the tomosynthesis. In addition 2-D magnification CC and ML views were obtained of the lumpectomy site in the upper outer left breast. FINDINGS: The breasts are heterogeneously dense, which may obscure small masses (ACR BI-RADS breast composition Category c). There is a buckle-shaped biopsy clip in the far upper outer left breast, with benign pathology. Approximately 3 cm more towards the nipple, there is a lumpectomy scar with parenchymal distortion and overlying scar marker indicating area of LCIS lumpectomy. No suspicious remaining or recurrent microcalcifications are identified at or near the lumpectomy site. More towards the nipple, there are loosely grouped calcifications throughout the parenchyma, most likely relating to adenosis or apocrine metaplasia. More towards the buckle clip in the upper outer left breast, there are loosely grouped punctate calcifications in the axillary tail of the parenchyma, none with suspicious grouping or pleomorphism, similar to the more anterior dense breast tissue. No left axillary abnormalities. MM/MM tomosynthesis diagnostic LT IMPRESSION: -There are no findings suspicious for malignancy. -There are benign post lumpectomy changes as detailed above. No definite persistent or recurrent suspicious calcifications. -Recommend resuming postoperative screening protocol in 6 months, with spot magnification left CC and ML views of the upper outer left breast. ASSESSMENT: BI-RADS BI-RADS 2 - Benign Findings RECOMMENDATION: 1 year F/U Results were provided to the patient at time of visit by the technologist. This patient's information was entered into a reminder system with a target due date for their next mammogram.
== END 2023-09-06 15:01 | disposition home or self-care (01) ==
LOC: HO.MAMMO 15:00
PROVIDERS: PCP Nurse Practitioner Family; Visit Provider Surgery
DX: D05.02 Lobular carcinoma in situ of left breast (principal)
CPT/HCPCS: 77061; 77065

== ENCOUNTER → 2023-09-06 15:00 | Outpatient (BNV) | payer BC, SELFPAY | PROVIDERS: PCP Nurse Practitioner Family; Visit Provider Radiology Diagnostic Radiology | DX: D05.02 Lobular carcinoma in situ of left breast (principal) | CPT/HCPCS: 77061; 77065 ==

== ENCOUNTER 2023-09-15 08:43 | Outpatient (AMB) | payer BC, SELFPAY ==
--- NOTE | 2023-09-15 08:46 | MHC.OFFVIS ---
Intake Visit Reasons: 4m s/p Lt lumpectomy Intake Note: Patient here 4m s/p Lt br lumpectomy. Reports incision healing well. Patient c/o: no concerns. Reports no changes in medical hx since last visit. MM: 09-06-23. Jg MM recommended. 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 Recent postprocedure mammogram was within normal limits. Patient has no breast issues or complaints. She does do occasional soft exams. [facility] Medical History Leukopenia Mitral valve prolapse Right sided sciatica Degenerative disc disease, lumbar Cyst of left breast Masses of both breasts Surgical History History of lumpectomy of left breast (05/07/23) [place] teeth extracted History of tonsillectomy Family History Father Diabetes mellitus HTN (hypertension) Mother Diabetes mellitus HTN (hypertension) Kidney failure Brother Diabetes mellitus HTN (hypertension) Son No problems noted. Maternal Grandmother Colon cancer Social History Household Members: Spouse Housing: House Are you a primary animal care specialist to a significant other at home: No Do you presently have visiting nurse or other home services: No Alcohol intake: current Alcohol intake frequency: holidays/special occasions only Comment: counts correct Patient Tobacco Use Status: Never used Tobacco service: No Current occupational status: employed Current occupation: sales Current occupational exposures/hazards: No Sexual orientation: Straight/Heterosexual Gender identity: Female Physical Exam Chest Other: Incision clean dry and intact. Breast exam otherwise benign bilaterally. No evidence of any periclavicular cervical or axillary adenopathy bilaterally. Assessment & Plan Assessment & Plan (1) Lobular carcinoma in situ (LCIS) of left breast: Code(s): D05.02 - Lobular carcinoma in situ of left breast Category: Surgical Plan Current plan is see the patient in February following bilateral screening/diagnostic mammography. During this interim, patient has been encouraged to do monthly breast exams. Patient was also being followed by Oncology regarding her adjuvant hormonal prophylactic therapy. Coding Level of Care Code Est Pt Level 4 (30427) Diagnoses Lobular carcinoma in situ (LCIS) of left breast D05.02
== END 2023-09-15 09:01 | disposition home or self-care (01) ==
PROVIDERS: PCP Nurse Practitioner Family; Visit Provider Surgery
DX: D05.02 Lobular carcinoma in situ of left breast (principal)
CPT/HCPCS: 99213

== ENCOUNTER → 2023-09-15 08:43 | Outpatient (BNVA) | payer BC, SELFPAY | PROVIDERS: PCP Nurse Practitioner Family; Visit Provider Surgery ==

== ENCOUNTER 2024-02-23 13:00 | Outpatient (REF) | payer BC, SELFPAY ==
--- NOTE | ~2024-02-23 | MM_ITS ---
EXAMINATION: MM DIAGNOSTIC DIGITAL BREAST TOMOSYNTHESIS, BILATERAL CLINICAL INFORMATION: Year 1 postoperative protocol diagnostic left breast; bilateral yearly screening. Patient has history of left lumpectomy for left breast upper outer calcifications yielding ALH in 2022. This will be first year postop protocol. COMPARISON: Mammography: 09/06/2023, 02/10/2023, 03/04/2023, 02/03/2022, 01/29/2021, and dating back to 2017. Stereotactic 2 site biopsy left breast 03/08/2023. TECHNIQUE: Digital breast tomosynthesis is performed in both the craniocaudal and mediolateral oblique views along with computer-aided detection (CAD). Synthesized 2D images are generated from the tomosynthesis. In addition, 2-D spot magnification left CC and ML views were obtained of the left breast lumpectomy site. FINDINGS: The breasts are extremely dense, which lowers the sensitivity of mammography (ACR BI-RADS breast composition Category d). There are post lumpectomy changes upper outer left breast, middle one third, expected. No residual or recurrent calcifications. Post benign biopsy clip upper outer left breast from recent benign stereotactic biopsy. Otherwise, there are no suspicious masses, suspicious grouped calcifications, or areas of architectural distortion in either breast. The parenchymal pattern is otherwise stable from prior exams. There is no axillary abnormality. MM/MM tomosynthesis diagnostic BI IMPRESSION: -No findings suspicious for malignancy. -Expected Postlumpectomy changes upper outer left breast. No residual or recurrent calcifications. -Recommend the patient continue with postoperative protocol year 2, in 1 year. ASSESSMENT: BI-RADS BI-RADS 2 - Benign Findings RECOMMENDATION: 1 year F/U Results were provided to the patient at time of visit by the technologist. This patient's information was entered into a reminder system with a target due date for their next mammogram. Electronically signed by: Anish Pulliam MD 02/23/2024 03:10 PM TRAN
== END 2024-02-23 13:01 | disposition home or self-care (01) ==
LOC: HO.MAMMO 13:00
PROVIDERS: PCP Nurse Practitioner Family; Visit Provider Surgery
DX: D05.02 Lobular carcinoma in situ of left breast (principal)
CPT/HCPCS: 77062; 77066

== ENCOUNTER → 2024-02-23 13:00 | Outpatient (BNV) | payer BC, SELFPAY | PROVIDERS: PCP Nurse Practitioner Family; Visit Provider Radiology Diagnostic Radiology | DX: R92.1 Mammographic calcification found on diagnostic imaging of breast (principal) | CPT/HCPCS: 77062; 77066 ==

== ENCOUNTER 2024-03-06 13:02 | Outpatient (AMB) | payer BC, SELFPAY ==
--- NOTE | 2024-03-06 13:03 | A.OFFVIS_ITS ---
Vital Signs 03/06/24 13:09 Height 5 ft 2 in Weight 169 lb BMI 30.9 BP 132/50 L Blood Pressure Location Rt brachial Position Sitting Pulse 70 Intake Visit Reasons: follow up visit for 02/23/24 mammo Intake Note: Patient here for 6m follow up br exam. Hx of Lt br lumpectomy in April 2023. Reports site healed well. Patient c/0: tenderness along surgical scar line from lt br lupectomy. feels like pinching. Denies rash, nipple discharge. MM 02-23-2024. Chief Nursing Executive Required: No Accompanied by: Self / Same As Patient Allergies [place] And Derivatives Adverse Reaction (Verified 03/06/24 13:09) Rash lobster Adverse Reaction (Verified 03/06/24 13:09) Rash Medication List - Last Reconciled 03/06/24 by Quinn Chauhan MD calcium carbonate (Calcium 600) 600 mg PO DAILY cholecalciferol (vitamin D3) 50 mcg PO DAILY raloxifene 60 mg PO DAILY vitamin B complex 1 tab PO DAILY [Vitamin C 200 mcg PO DAILY PRN] HPI Comments Details: Patient presents for breast evaluation status post lumpectomy April of last year. A recent mammogram was within normal limits and recommended 1 year follow-up study. The meantime, patient was occasional incisional discomfort but otherwise no other breast symptoms or complaints. She denies any mass, discharge, skin changes or any other significant pain. She does periodic self- breast exams [facility] Medical History Leukopenia Mitral valve prolapse Right sided sciatica Degenerative disc disease, lumbar Cyst of left breast Masses of both breasts Surgical History (Updated 03/06/24 @ 13:18 by Quinn Chauhan MD) History of lumpectomy of left breast (05/07/23) [place] teeth extracted History of tonsillectomy Family History Father Diabetes mellitus HTN (hypertension) Mother Diabetes mellitus HTN (hypertension) Kidney failure Brother Diabetes mellitus HTN (hypertension) Son No problems noted. Maternal Grandmother Colon cancer Social History Household Members: Spouse Housing: House Are you a primary career development manager to a significant other at home: No Do you presently have visiting nurse or other home services: No Alcohol intake: current Alcohol intake frequency: holidays/special occasions only Comment: counts correct Patient Tobacco Use Status: Never used Tobacco service: No Current occupational status: employed Current occupation: sales Current occupational exposures/hazards: No Sexual orientation: Straight/Heterosexual Gender identity: Female Physical Exam Vital Signs: Last Vital Signs Pulse 70 03/06/24 13:09 BP 132/50 L 03/06/24 13:09 BMI result Body Mass Index 30.9 Chest Other: Bilateral breast exam demonstrates no obvious mass, discharge, skin changes. Left upper outer quadrant scar well healed. No periclavicular or axillary or cervical adenopathy. GI Other: Abdomen corpulent, soft, benign. No organomegaly appreciated Assessment & Plan Assessment & Plan (1) Encounter for follow-up surveillance of breast cancer: Code(s): Z08 - Encounter for follow-up examination after completed treatment for malignant neoplasm; Z85.3 - Personal history of malignant neoplasm of breast Category: Surgical (2) Lobular carcinoma in situ (LCIS) of left breast: Code(s): D05.02 - Lobular carcinoma in situ of left breast Category: Surgical (3) Status post left breast lumpectomy: Code(s): Z98.890 - Other specified postprocedural states Category: Surgical Plan Patient will see me in 1 year's time with follow-up bilateral mammogram. In the meantime she is encouraged to do self-breast exams periodically. All questions answered. Any concerns or issues he has been instructed to contact the office will otherwise see me as directed. Orders: Orders MM diagnostic mammo BI 11 Months D05.02 - Lobular carcinoma in situ of left breast, Z08 - Encounter for follow-up examination after completed treatment for malignant neoplasm, Z85.3 - Personal history of malignant neoplasm of breast, Z98.890 - Other specified postprocedural states Coding Level of Care Code Est Pt Level 4 (84785) Diagnoses Encounter for follow-up surveillance of breast cancer Z08; Z85.3 Lobular carcinoma in situ (LCIS) of left breast D05.02 Status post left breast lumpectomy Z98.890
[2024-03-06 13:09] VITALS: BP 132/50; PULSE 70; BMI 30.9
== END 2024-03-06 13:17 | disposition home or self-care (01) ==
PROVIDERS: PCP Nurse Practitioner Family; Visit Provider Surgery
DX: Z08 Encounter for follow-up examination after completed treatment for malignant neoplasm (principal); Z85.3 Personal history of malignant neoplasm of breast; D05.02 Lobular carcinoma in situ of left breast; Z98.890 Other specified postprocedural states
CPT/HCPCS: 99214

== ENCOUNTER → 2024-03-06 13:02 | Outpatient (BNVA) | payer BC, SELFPAY | PROVIDERS: PCP Nurse Practitioner Family; Visit Provider Surgery ==

== ENCOUNTER 2025-02-26 12:57 | Outpatient (REF) | payer BC, SELFPAY ==
--- NOTE | ~2025-02-26 | MM_ITS ---
EXAMINATION(S): MM DIAGNOSTIC DIGITAL BREAST TOMOSYNTHESIS, BILATERAL CLINICAL INFORMATION: Patient is status post left breast stereotactic needle core biopsy of two sides on March 08, 2023, as follows: -Site A associated with top hat clip showed atypical lobular hyperplasia. Surgical excision on May 07, 2023, with pathology results showing LCIS and atypical ductal hyperplasia. -Site B associated with buckle shape clip showed benign results. Residual loosely grouped calcifications were followed up until February 2024, when were considered benign finding. COMPARISON: Comparison made to multiple prior, most recent February 23, 2024, and most remote February 15, 2021. TECHNIQUE: Digital breast tomosynthesis is performed in both the mediolateral oblique and craniocaudal views along with computer-aided detection (CAD). Synthesized 2D images are generated from the tomosynthesis. FINDINGS: BREAST COMPOSITION: The breasts are extremely dense, which lowers the sensitivity of mammography. RIGHT BREAST: No significant masses, suspicious calcifications or other abnormalities are seen. LEFT BREAST: Post lumpectomy changes. Buckle shape tissue marker from previous needle core biopsy. No significant masses, suspicious calcifications or other abnormalities are seen. MM/MM tomosynthesis diagnostic BI IMPRESSION: BILATERAL BREASTS: Benign, no mammographic evidence of malignancy. Normal interval follow-up is recommended in 12 months. ASSESSMENT: BI-RADS: Category 2: Benign RECOMMENDATION: 12 month diagnostic follow up Results were provided to the patient at time of visit by the technologist. This patient's information was entered into a reminder system with a target due date for their next mammogram. Electronically signed by: Ev Monson MD 02/26/2025 01:56 PM TRAN
--- OUTSIDE RECORDS SUMMARY | 2025-02-26 15:00 | XMS_ITS | Clinical Summary ---
Author Organization [facility] Address [address] [address] Phone Care Team Providers Care Collar Folder Operator Name Role Phone Melody Jesus NP Primary Care Provider [phone]- [phone] Allergies Active Allergy Reactions Criticality Noted Date Comments [place] And Derivatives Rash Low 06/20/2020 Medications cholecalciferol, vitamin D3, 400 unit capsule Orally Active b complex vitamins capsule Take 1 capsule by mouth daily. Active raloxifene (EVISTA) 60 mg tablet Take 60 mg by mouth daily. Active valACYclovir (VALTREX) 500 MG tabletIndications:H erpes simplex vulvovaginitis 1 tablet twice a day x 3 days for an outbreak. 18 tablet 5 5 Active Active Problems Problem Noted Date Diagnosed Date Perimenopause 02/24/2022 Overview (02/24/2022): Irregular menses for a couple of years; 02/2022 no menses since May Assessment & Plan (02/24/2022 12:14 PM EST): We reviewed normal parameters for bleeding in perimenopause and diagnosis of menopause if no menses for a full year; advised to call with any bleeding that occurs after that time. External hemorrhoids 07/25/2020 Assessment & Plan (07/25/2020 3:25 PM EDT): Small <1 cm external hemorrhoid, nontender, non-thrombosed at 12:00 perianal skin. Unclear etiology of twitching patient feels in this area. Likely small muscle fasciculation. Reassured patient not likely a worrisome finding and she will follow-up if any symptoms become worse. May continue with as needed Preparation H use if needed. Herpes simplex vulvovaginitis Assessment & Plan (06/20/2020 10:17 AM EST): Notes an outbreak 1-2 times a year still likes to have some Valtrex on hand. Has is used both acyclovir and Valtrex in the past. Refill for Valtrex provided. Instructed patient to take 1 tablet twice a day x3 days for outbreak. Declines daily suppressive use. Resolved Problems Problem Noted Date Diagnosed Date Resolved Date Adnexal mass 06/20/2020 07/25/2020 Assessment & Plan (07/25/2020 3:24 PM EDT): 5 cm adnexal mass noted on pelvic exam last visit. Subsequent ultrasound was normal. Patient in for follow-up exam today which is normal. Reassured and no further follow-up needed. Assessment & Plan (06/20/2020 10:18 AM EST): Adjacent to the uterus on the right, 5 cm mobile mass appreciated. Question possibility of stool. Patient notes history some constipation but states she has had a BM today. Discussed with patient the possibility of adnexal/ovarian mass versus stool in colon. I am more suspicious of adnexal mass and of suggested ultrasound. Patient otherwise asymptomatic. Immunizations Immunization Administration Dates Next Due COVID-19 (Pre-02/08) Moderna Vaccine, mRNA, PF 0 07/30/2020 Influenza Quadrivalent MDCK Preservative Free IM 03/30/2021 Influenza Quadrivalent Preservative Free IM 01/17 Family History Medical History Relation Comments Diabetes type II Brother Hypertension Brother Alzheimer's disease Father Diabetes type II Father 2020 - age 80 a nd many health issues Uterine cancer Maternal Aunt Colon cancer Maternal Grandmother 80s Diabetes type II Mother Heart failure Mother d. 62. Kidney failure Mother age 62 comp lications of DM Relation Status Comments Brother Alive Father Alive Maternal Aunt Maternal Grandmother Mother Social History Tobacco Use Types Packs/Day Years Used Date Smoking Tobacco: Never Smokeless Tobacco: Never Tobacco Cessation:Counseling Given: Not Answered Alcohol Use Standard Drinks/Week Comments Yes 0 (1 standard drink = 0.6 oz pur e alcohol) occasionally Education Answer Date Recorded Are you interested in more education? Not on rolo e 08/14/2022 Are you concerned about learning? Not on file 08/14/2022 No 08/14/2022 No 08/14/2022 Digital Access Answer Date Recorded No 09/12/2022 No 09/12/2022 Reliable internet access at home? Not on file 09/12/2022 Device with a working camera? Not on file Comments No Sex and Gender Information Value Date Recorded Sex Assigned at Not on file Legal Sex Female 9:36 PM EDT Gender Identity Not on file Sexual Orientation Not on file Last Filed Vital Signs Vital Sign Reading Time Taken Comments Blood Pressure 134/80 02/25/2024 2:18 PM EST Pulse - - Temperature - - Respiratory Rate - - Oxygen Saturation - - Inhaled Oxygen Concentration - - Weight 74.8 kg (165 lb) 02/25/2024 2:18 PM EST Height 157.5 cm (5' 2 ) 02/25/2024 2:18 PM EST Body Mass Index 30.18 02/25/2024 2:18 PM EST Plan of Treatment Health Maintenance Due Date Last Done Comments LIPID PANEL 1969 DEPRESSION SCREENING 1981 HEPATITIS C SCREENING 1987 HIV ONE-TIME SCREENING (18-65 YEARS) 1987 SCREENING FOR DIABETES 2004 MAMMOGRAM 2009 COLOGUARD 2014 COLONOSCOPY 2014 COLORECTAL CANCER SCREENING 2014 FIT TEST 2014 FOBT 2014 SIGMOIDOSCOPY 2014 VIRTUAL COLONOSCOPY 2014 PNEUMOCOCCAL VACCINES (50+ years) (1 of 1 - PCV) 2019 Adult Td,Tdap Booster 09/15/2022 09/15/2012 PAP SMEAR 06/21/2023 06/20/2020, 05/21/2016 ZOSTER VACCINES (2 of 2) 04/09/2024 02/13/2024 INFLUENZA VACCINE (#1) 2024 2, 03/30/2021, 02/02/2020, Additional history exists COVID-19 VACCINE (3 - 2024-26 season) 2024 08/27/2020, 07/30/2020 RSV VACCINE (1 - 1-dose 75+ series) 2044 SMOKING STATUS SCREENING (Once After 26 Yrs) Completed 02/25/2024 HEPATITIS A VACCINES Aged Out No long er eligible based on patient's age to complete this topic HIB VACCINES Aged Out No longer eligi ble based on patient's age to complete this topic MENINGOCOCCAL VACCINES (ACWY) Aged Out No longer eligible based on patient's age to complete this topic MENINGOCOCCAL VACCINES (B) Aged Out N o longer eligible based on patient's age to complete this topic Medical Devices Not on file Procedures Procedure Name Priority Date/Time Associated Diagnosis Comments PAP TEST Routine 06/20/2020 12:00 AM EST from Last 3 Months or Most Recently Relevant to Health Maintenance Results * Pap Smear (06/20/2020 12:00 AM EST) 06/20/2020 06/21/2020 8:3 2 AM EST Narrative SEE NARRATIVE - 06/25/2020 1:11 PM EST [address] [address] News Director: Apryl Aranda MD SAMPLER PICKUP Cytology Report FINAL DIAGNOSIS A. PAP SMEAR (SUREPATH) CE: SPECIMEN ADEQUACY: Satisfactory for evaluation; transformation zone present. INTERPRETATION: NEGATIVE FOR INTRAEPITHELIAL LESION OR MALIGNANCY. Electronically Signed Out By: ZACARIAS Foy(ASCP) The Pap test is a screening test primarily for squamous cancers and precursors and has associated false-negative and false-positive results. New technologies such as liquid-based preparations may decrease but will not eliminate all false-negative results. Regular sampling and follow-up of unexplained clinical signs and symptoms are recommended to minimize false negative results. PROCEDURES/ADDENDA HPV Testing (Requested) Ordered Date: 06/21/2020 A. PAP SMEAR (SUREPATH) CE: Human Papilloma Virus Test Negative for high-risk human papillomavirus types 16, 18, 45 and the Other high risk probe set (Includes 31, 33, 35, 39, 51, 52, 56, 58, 59, 66, 68) by [employer] Onclarity HR-HPV analysis. Clinical correlation is advised. This HPV test was performed at [facility], [address] [place] [address]. This test has been FDA approved for SurePath cervical cytology specimens. The accuracy and precision of this test for all other specimen sources has been verified in the Cytopathology Laboratory of the [facility] and has not been cleared or approved by the U.S. Food and Drug Administration. Clinical correlation is advised. CLINICAL HISTORY Date of Last Menstrual Period: Not Provided Menstrual History: Unknown Other Clinical Conditions: Screening Pap SPECIMEN SOURCE A: PAP SMEAR (SUREPATH) CE Patient Name: KALEE VELASQUEZ : 1970 (Age: 50) Sex: F Institution: [facility] Location: [facility] Date of Collection: 06/20/2020 Date of Reported: 06/25/2020 13:11 Results to: Diandra Chun MD Diandra Chun MD CYTOLOGY ORDERABLES Final Result SEE NARRATIVE from Last 3 Months or Most Recently Relevant to Health Maintenance [place] [address] [address] PPO BLUE [place] OUT [facility] PPO OUT OF [facility] PPO OUT [facility] PPO [facility]UE [place] OUT OF STATE PPO [place] OUT OF [facility] PPO BLUE [place] OUT OF [facility] PPO BLUE [place] OUT OF STATE PPO [facility] OUT [facility] PPO Care Teams Collar Folder Operator Relationship Specialty Start Date End Date Melody Jesus NP [address] [place] [address] PCP - General Family Medicine 06/20/20 Additional Source Comments The information contained in this document represents components of the legal health record. It is not the complete legal health record.[facility]
== END 2025-02-26 12:58 | disposition home or self-care (01) ==
LOC: HO.MAMMO 12:57
PROVIDERS: PCP Nurse Practitioner Family; Visit Provider Nurse Practitioner Family
DX: Z85.3 Personal history of malignant neoplasm of breast (principal)
CPT/HCPCS: 77062; 77066

== ENCOUNTER → 2025-02-26 13:00 | Outpatient (BNV) | payer BC, SELFPAY | PROVIDERS: PCP Nurse Practitioner Family; Visit Provider Radiology Body Imaging | DX: Z85.3 Personal history of malignant neoplasm of breast (principal); Z98.890 Other specified postprocedural states | CPT/HCPCS: 77062; 77066 ==